=== PATIENT | female | born 1950 | race Caucasian/White ===

== ENCOUNTER → 2019-08-22 | Outpatient (CLI) | payer MEDICARE ==
[~2019-08-22] MED LIST: NORVASC 5MG5 MG/TAB PO; PROZAC 20MG20 MG PO; TYLENOL 500MG500 MG PO
--- NOTE | 2019-08-24 10:30 | NUR ---
While asking patient about her last fluid/solid intake, patient reported that she ate dinner last night. It was then discovered that patient did not do a bowel prep. Dr Luque then notified and procedure was cancelled. Patient educated about bowel prep and NPO time prior to procedure. Patient voiced understanding. Dr Luque's office notified of cancelled procedure and the need to get patient prep instructions. Patient leaves thanking staff for services.
== END ==
LOC: COL.LAB 08:00 → SDCO 08-24 09:58 → EDSTATUS 08-24 11:00
DX: Z12.11 Encounter for screening for malignant neoplasm of colon (principal); Z20.828 Contact with and (suspected) exposure to other viral communicable diseases

== ENCOUNTER 2019-09-21 08:55 | Day surgery (SDC) | payer MEDICARE ==
[~2019-09-21] VITALS: Ht 149.9 cm; Wt 61.7 kg
[2019-09-21 09:53] VITALS: BP 144/84; PULSE 66; TEMP 97.8
[2019-09-21 11:20] VITALS: BP 155/76; PULSE 56; TEMP 97.6
--- NOTE | 2019-09-21 11:20 | NUR ---
PT TO [facility] VIA CART FROM [facility], PT WALKED TO CHAIR, AWAKE AND ALERT. NO C/O, CALL LIGHT IN REACH. INTO SEE PT ALSO, TAKES SPRITE AND CRACKERS
[2019-09-21 11:35] VITALS: BP 159/77; PULSE 58
[2019-09-21 11:50] VITALS: BP 150/77; PULSE 78
--- NOTE | 2019-09-21 11:50 | NUR ---
REVIEWED DISCHARGE INST. WITH PT ON FOLLOWUP AND MODERATE SEDATION PRECAUTIONS, WITH VERBAL UNDERSTANDING. IV D'CD INTACT. PT UP TO B/R GAIT STEADY, DRESSED.
--- NOTE | 2019-09-21 12:11 | NUR ---
PT DISCHARGED VIA W/C TO CAR
== END 2019-09-21 12:12 | disposition home or self-care (01) ==
LOC: SDCO 08:55
DX: Z12.11 Encounter for screening for malignant neoplasm of colon (principal); K57.30 Diverticulosis of large intestine without perforation or abscess without bleeding; E78.00 Pure hypercholesterolemia, unspecified; I10 Essential (primary) hypertension; D50.9 Iron deficiency anemia, unspecified; Z96.642 Presence of left artificial hip joint; G47.33 Obstructive sleep apnea (adult) (pediatric); M19.90 Unspecified osteoarthritis, unspecified site; Z20.828 Contact with and (suspected) exposure to other viral communicable diseases
CPT/HCPCS: J2704; J3010; J7030